=== PATIENT | male | born 1960 | race Caucasian/White ===

== ENCOUNTER 2021-03-20 11:07 | Inpatient (IN) | payer BC ==
[~2021-03-20] VITALS: Ht 182.9 cm; Wt 86.5 kg
[~2021-03-20 11:07] MED LIST: HYDACE5 PO
[2021-03-20 12:47] LABS: International Normalized Ratio 1.01; Prothrombin Time Results 10.6 Sec (9.7-11.5)
--- NOTE | 2021-03-20 13:26 | NUR ---
Echocardiogram completed.
[2021-03-20 15:26] LABS: U Amphetamine Screen Not Detected; U Barbituate Screen Not Detected; U Benzodiazapine Screen Not Detected; U Buprenorphine Screen Not Detected; U Cannabinoids Screen Not Detected; U Cocaine Screen Not Detected; U Methadone Screen Not Detected; U Methamphetamine Screen Not Detected; U Opiates Screen Not Detected; U Oxycodone Screen Not Detected; U Phencyclidine Screen Not Detected; U Propoxyphene Screen Not Detected
[2021-03-20 16:09] LABS: SARS-Cov-2 (COVID-19) PCR, MMC POSITIVE (NEGATIVE)
--- NOTE | 2021-03-20 17:45 | NUR ---
RECEIV[facility] S/P ANGIO. CORS NEGATIVE. PT WAS ADMITTED FOR CP, SOB, AND ELEVATED TROPONIN-DX NON STEMI. ON ECHO, PT WAS FOUND TO HAVE SEVERE MITRAL VALVE DISEASE AND PULMONARY HYPERTENSION FOR WHICH HE NEEDS AN URGENT VALVE REPLACEMENT. DR. CARDOZA ATTEMPTED ARRANGE FOR TRANSFER WITH SEVERAL FACILITIES, BUT NO BEDS AVAILABLE. PT IS A&0X7-KATEHE PAIN, BUT REPORTS SOB AT REST. HOLOSYSTOLIC MURMUR AUSCULTATED. ECG SHOWS SR WITH RATE 80-90'S. SBP TRENDING 160-170'S/100'S-NITRO DRIP INFUSING @ 20 MCG/MIN-WILL TITRATE-SEE FLOWSHEET. TR BAND IN PLACE TO RIGHT RADIAL ARTEREOTOMY SITE. TR BAND HAS 10 CC IN CUFF-NO BLEEDING OR HEMATOMA. LUNGS CLEAR, BUT SLIGHTLY DECREASED IN THE BASES. SATS>90% ON RA-2 LITERS NASAL CANULA PLACED FOR SOB. PT IS NPO HE MAYBE TRANSFERED URGENTLY. PT LUZ MARINA AT BEDSIDE-UPDATED TO CURRENT STATUS AND PLAN OF CARE. MRS. VARELA ASKING ABOUT PT PHONE AND OTHER BELONGINGS. THE ONLY BELONGINGS THAT PT HAD ON ARRIVAL TO ICU WAS A MASK AND UNDERWEAR. NURSING HEAD CLEANING PORTER NOTIFIED THAT PT BELONGINGS MAY HAVE BEEN LEFT IN THE CLOUD SUBJECT MATTER EXPERT-BALA BARRY TO SEARCH FOR PT BELONGINGS. PT HAS BEEN HEALTHY AND ON NO MEDICATIONS. HE WAS DX WITH COVID 02/25/21-HE RECEIVED REGENERON. PT IS UNVACCINATED.
--- NOTE | 2021-03-20 19:54 | NUR ---
ASSUMED CARE RECEIVED REPORT FROM [facility] AT 1900. PT RESTING. A&O X4, PLEASANT AND COOPERATIVE. REPORTS PAIN 5/10 FROM HEADACHE, LIKELY R/T NITRO GTT. PRN TYLENOL GIVEN. HE REPORTS MINIMAL SOB, 3L NC ON AND SPO2 96%. LUNGS CLEAR T/O. DX OF SEVERE MITRAL VALVE DISEASE AND PULMONARY HYPERTENSION FOUND TODAY ON ECHO, AWAITING TRANSFER FOR REPAIR. HR CURRENTLY ST IN 100'S, SBP MAINTAINING 110-120'S/60'S. NITRO GTT AT 60MCG/MIN TO KEEP SPB >100. TR BAND IN PLACE TO RIGHT RADIAL, 10ML, NO HEMATOMA AND GRADUALLY RELEASING 1ML Q10 MIN. PT NPO IN ANTICIPATION OF TRANSFER. USING URINAL AT BEDSIDE. LEFT F/A 18G PERIPHERAL IV INFUSING, LEFT AC 20G PERIPHERAL, INFUSING. ORDERS REVIEWED AND WILL TREAT PRESCRIBED
--- NOTE | 2021-03-20 21:26 | NUR ---
PT BELONGINGS PT HAS GLASSES, 2 CELL PHONES, & UNDERWEAR. ALL BELONGINGS TRANSFERED WITH PATIENT.
--- NOTE | 2021-03-20 23:30 | NUR ---
TRANSFER PT LEFT FOR TRANSFER TO [facility] AT 0385. REPORT WAS CALLED TO [facility] @ 1247. PT TRANSPORTED BY [facility]. NITRO GTT REMAINS INFUSING AT 60MCG/MIN.
== END 2021-03-20 23:15 | disposition short-term general hospital (02) | DRG 280 ==
LOC: ER 11:07 → ERHOLD 12:42 → ICUE 12:42
PROVIDERS: Emergency Medicine; Nurse Practitioner Acute Care; ADMIT Internal Medicine
PROC: 4A023N7 Measurement of Cardiac Sampling and Pressure, Left Heart, Percutaneous Approach (ICD-10-PCS; principal; 2021-03-20)
PROC: B2111ZZ Fluoroscopy of Multiple Coronary Arteries using Low Osmolar Contrast (ICD-10-PCS; 2021-03-20)
PROC: 8E0ZXY6 Isolation (ICD-10-PCS; 2021-03-20)
DX: I21.4 Non-ST elevation (NSTEMI) myocardial infarction (principal); U07.1 COVID-19; R65.10 Systemic inflammatory response syndrome (SIRS) of non-infectious origin without acute organ dysfunction; I34.0 Nonrheumatic mitral (valve) insufficiency; I27.20 Pulmonary hypertension, unspecified; I25.10 Atherosclerotic heart disease of native coronary artery without angina pectoris; Z79.82 Long term (current) use of aspirin
CPT/HCPCS: 36415; 71046; 76937; 80053; 83036; 83880; 84484; 85025; 85379; 85610; 85730; 93005; 93010; 93306; 93458; 94762; 99152; 99153; 99285-25; A9270; C1769; C1887; C1894; J1644; J2250; J3010; J7030; J7050; Q9967; U0004

== ENCOUNTER → 2022-09-23 | Outpatient (CLI) | payer OTHER ==
[~2022-09-23] MED LIST changes: +ASPI81CH PO; +Coumadin7.5 MG PO; +WARF5 PO
[2022-09-23 07:49] LABS: BASOPHILS ABSOLUTE AUTO 0.05 K/mm3 (0.00-0.23); BASOPHILS PERCENT AUTO 1 % (0-2); EOSINOPHILS PERCENT AUTO 2 % (0-6); Hematocrit 43.7 % (37.0-53.0); Hemoglobin 15.4 g/dL (13.5-17.5); IMMATURE GRAN ABSOLUTE AUTO 0.02 K/mm3 (0.00-0.10); IMMATURE GRAN PERCENT AUTO 0 % (0-1); LYMPHOCYTES PERCENT AUTO 19 % (21-46); MONOCYTES PERCENT AUTO 10 % (4-13); Mean Corpuscular HGB 32.2 pg (26.0-34.0); Mean Corpuscular HGB Conc 35.2 g/dL (31.5-36.5); Mean Corpuscular Volume 91 fL (80-100); Mean Platelet Volume 10.3 fL (9.1-12.4); NEUTROPHILS ABSOLUTE AUTO 4.09 K/mm3 (1.96-9.15); NEUTROPHILS PERCENT AUTO 69 % (41-73); Platelet Count 207 K/mm3 (150-400); RDW Coefficient Variation 13.1 % (11.7-14.2); RDW Standard Deviation 43.7 fL (35.1-46.3); Red Blood Cell Count 4.78 M/mm3 (4.30-5.90); White Blood Cell Count 5.96 K/mm3 (4.00-11.30)
[2022-09-23 08:38] LABS: International Normalized Ratio 2.12; Prothrombin Time Results 21.3 Sec (9.7-11.5)
== END | disposition home or self-care (01) ==
LOC: LAB 07:45 → LAB SHORT 07:45
PROVIDERS: Physician Assistant
DX: R04.0 Epistaxis (principal)
CPT/HCPCS: 85025; 85610

== ENCOUNTER 2022-09-26 08:26 | Emergency (ER) | payer OTHER ==
[~2022-09-26] VITALS: Ht 182.9 cm; Wt 95.2 kg
[~2022-09-26 08:26] MED LIST changes: -ASPI81CH PO; -Coumadin7.5 MG PO; -WARF5 PO
[2022-09-26 08:46] VITALS: BP 146/103
[2022-09-26] MEDS ORDERED: WARF5 PO (08:52)
[2022-09-26] MEDS ORDERED: Coumadin7.5 MG PO (08:52)
[2022-09-26] MEDS ORDERED: ASPI81CH PO (08:53)
[2022-09-26 11:10] LABS: BASOPHILS ABSOLUTE AUTO 0.06 K/mm3 (0.00-0.23); BASOPHILS PERCENT AUTO 1 % (0-2); EOSINOPHILS PERCENT AUTO 1 % (0-6); Hematocrit 43.2 % (37.0-53.0); Hemoglobin 14.9 g/dL (13.5-17.5); IMMATURE GRAN ABSOLUTE AUTO 0.02 K/mm3 (0.00-0.10); IMMATURE GRAN PERCENT AUTO 0 % (0-1); LYMPHOCYTES PERCENT AUTO 19 % (21-46); MONOCYTES ABSOLUTE AUTO 0.72 K/mm3 (0.16-1.47); MONOCYTES PERCENT AUTO 9 % (4-13); Mean Corpuscular HGB 31.6 pg (26.0-34.0); Mean Corpuscular HGB Conc 34.5 g/dL (31.5-36.5); Mean Corpuscular Volume 92 fL (80-100); Mean Platelet Volume 10.6 fL (9.1-12.4); NEUTROPHILS ABSOLUTE AUTO 5.36 K/mm3 (1.96-9.15); NEUTROPHILS PERCENT AUTO 69 % (41-73); Platelet Count 227 K/mm3 (150-400); RDW Standard Deviation 43.8 fL (35.1-46.3); Red Blood Cell Count 4.72 M/mm3 (4.30-5.90); White Blood Cell Count 7.76 K/mm3 (4.00-11.30)
[2022-09-26 11:13] LABS: International Normalized Ratio 2.73; Prothrombin Time Results 27.1 Sec (9.7-11.5)
== END 2022-09-26 12:10 | disposition home or self-care (01) ==
LOC: ER 08:26
PROVIDERS: Physician Assistant; Student in an Organized Health Care Education/Training Program
DX: R04.0 Epistaxis (principal); Z79.01 Long term (current) use of anticoagulants; Z79.82 Long term (current) use of aspirin
CPT/HCPCS: 85025; 85610